=== PATIENT | male | born 1975 | race Caucasian/White ===

== ENCOUNTER → 2024-06-18 | Outpatient (CLI) | payer OTHER, BC ==
--- NOTE | 2024-06-18 15:45 | XR ---
EXAMINATION TYPE: XR hand complete RT DATE OF EXAM: 06/18/2024 3:33 PM INDICATION: Patient age:Male; 49 years old; Reason for study: [id number] HAND INJURY WITH LAC; [facility]. pain COMPARISON: None TECHNIQUE: Frontal, lateral and oblique views of the right hand were obtained. FINDINGS: Normal alignment of the visualized joints. No acute osseous pathology is identified. Scle rotic benign bone identified within the fourth digit proximal phalanx distally. No evidence of soft t issue swelling. No radiopaque foreign body. IMPRESSION: No acute osseous pathology. [facility], , 06/18/2024 3:43 PM
== END | disposition home or self-care (01) ==
LOC: RADXRYALE 15:17
PROVIDERS: ATTEND Physician Assistant Medical
DX: S61.210A Laceration without foreign body of right index finger without damage to nail, initial encounter (principal); S61.011A Laceration without foreign body of right thumb without damage to nail, initial encounter; X58.XXXA Exposure to other specified factors, initial encounter

== ENCOUNTER 2024-08-04 10:22 | Emergency (ER) | payer BC, OTHER ==
[2024-08-04 10:31] VITALS: TEMP 98.1
--- NOTE | 2024-08-04 11:25 | ED ---
General Adult HPI - General Chief complaint: Abdominal Pain Stated complaint: ABD Pain Time Seen by Provider: 08/04/24 10:32 Source: patient, RN notes reviewed Mode of arrival: ambulatory Limitations: no limitations - History of Present Illness Initial comments: 49-year-old male presents to the emergency department for evaluation of right lower quadrant abdominal pain. Patient states that this started at 3 AM. He states that it comes in waves. When the pain comes on he notes that it is sharp pain lasting 15 to 30 seconds. This is happening multiple times an hour. He denies any fever, chills. Denies nausea, vomiting. Denies dysuria, hematuria. Denies any changes in his bowel movements. He has not had anything to eat today. He has been tolerating water. Denies any prior abdominal surgeries - Related Data Allergies Allergy/AdvReac Type Severity Reaction Status Date / Time No Known Allergies Allergy Verified 08/04/24 10:31 Review of Systems ROS Statement: Those systems with pertinent positive or pertinent negative responses have been documented in the HPI. ROS Other: All systems not noted in ROS Statement are negative. Past Medical History Past Medical History: GERD/Reflux, Hypertension History of Any Multi-Drug Resistant Organisms: None Reported Additional Past Surgical History / Comment(s): hand Smoking Status: Current every day smoker Past Alcohol Use History: Occasional Past Drug Use History: None Reported General Exam Limitations: no limitations General appearance: alert, in no apparent distress Head exam: Present: atraumatic, normocephalic, normal inspection Eye exam: Present: normal appearance, PERRL, EOMI. Absent: scleral icterus, conjunctival injection, periorbital swelling ENT exam: Present: normal exam, mucous membranes moist Neck exam: Present: normal inspection. Absent: tenderness, meningismus, lymphadenopathy Respiratory exam: Present: normal lung sounds bilaterally. Absent: respiratory distress, wheezes, rales, rhonchi, stridor Cardiovascular Exam: Present: regular rate, normal rhythm, normal heart sounds. Absent: systolic murmur, diastolic murmur, rubs, gallop, clicks GI/Abdominal exam: Present: soft, tenderness, normal bowel sounds. Absent: distended, guarding, rebound, rigid Extremities exam: Present: normal inspection, full ROM, normal capillary refill. Absent: tenderness, pedal edema, joint swelling, calf tenderness Back exam: Present: normal inspection Neurological exam: Present: alert, oriented X3 Psychiatric exam: Present: normal affect, normal mood Skin exam: Present: warm, dry, intact, normal color. Absent: rash Course Vital Signs 08/04/24 08/04/24 08/04/24 10:28 14:40 15:58 Temperature 98.1 F Pulse Rate 90 68 78 Respiratory 17 18 18 Rate Blood Pressure 203/132 193/118 189/110 O2 Sat by Pulse 96 98 98 Oximetry Medical Decision Making - Medical Decision Making Was pt. sent in by a medical professional or institution (, PA, BALANCE SCREWHEAD POLISHER, urgent care, hospital, or correction...) When possible be specific @ -No Did you speak to anyone other than the patient for history (EMS, parent, family, police, friend...)? What history was obtained from this source @ -No Did you review nursing and triage notes (agree or disagree)? Why? @ -I reviewed and agree with nursing and triage notes Were old charts reviewed (outside hosp., previous admission, EMS record, old EKG, old radiological studies, urgent care reports/EKG's, correction records)? Report findings @ -No old charts were reviewed Differential Diagnosis (chest pain, altered mental status, abdominal pain women, abdominal pain men, vaginal bleeding, weakness, fever, dyspnea, syncope, headache, dizziness, GI bleed, back pain, seizure, CVA, palpatations, mental health, musculoskeletal)? @ -Differential Abdominal Pain Men: Appendicitis, cholecystitis, diverticulosis, ischemic bowel, pancreatitis, hepatitis, UTI, gastroenteritis, AAA, incarcerated hernia, bowel obstruction, constipation, inflammatory bowel, hepatitis, peptic ulcer disease, splenic infarction, perforated viscus, testicular torsion, this is not meant to be an all-inclusive list EKG interpreted by me (3pts min.). @ -None X-rays interpreted by me (1pt min.). @ -None done CT interpreted by me (1pt min.). @ -CT abdomen pelvis revealsNo significant abnormality, no acute intra- abdominal process U/S interpreted by me (1pt. min.). @ -None done What testing was considered but not performed or refused? (CT, X-rays, U/S, labs)? Why? @ -None What meds were considered but not given or refused? Why? @ -None Did you discuss the management of the patient with other professionals (professionals i.e. , PA, BALANCE SCREWHEAD POLISHER, lab, RT, psych nurse, older adult social work specialist, patient care representative, teacher, aerospace engineer officer armament, case management coordinator)? Give summary @ -No Was smoking cessation discussed for >3mins.? @ -No Was critical care preformed (if so, how long)? @ -No Were there social determinants of health that impacted care today? How? (Homelessness, low income, unemployed, alcoholism, drug addiction, transportation, low edu. Level, literacy, decrease access to med. care, correction, rehab)? @ -No Was there de-escalation of care discussed even if they declined (Discuss DNR or withdrawal of care, Hospice)? DNR status @ -No What co-morbidities impacted this encounter? (DM, HTN, Smoking, COPD, CAD, Cancer, CVA, ARF, Chemo, Hep., AIDS, mental health diagnosis, sleep apnea, morbid obesity)? @ -None Was patient admitted / discharged? Hospital course, mention meds given and route , prescriptions, significant lab abnormalities, going to OR and other pertinent info. @ -Patient left AGAINST MEDICAL ADVICE.Patient presented the emergency department for right lower quadrant abdominal pain. Laboratory studies obtained revealing no significant leukocytosis, hemoglobin 16.9; CMP reveals mild elevation in the AST and ALT. UA shows no evidence of infectious process, neg ative for blood. CT of the abdomen pelvis shows no evidence of acute intra- abdominal process. Patient found to be hypertensive in the emergency department. He was administered a dose of clonidine in the emergency department. He refused to allow me to recheck his blood pressure. He left AGAINST MEDICAL ADVICE. Undiagnosed new problem with uncertain prognosis? @ -No Drug Therapy requiring intensive monitoring for toxicity (Heparin, Nitro, Insulin, Cardizem)? @ -No Were any procedures done? @ -No Diagnosis/symptom? @ -Abdominal pain Acute, or Chronic, or Acute on Chronic? @ -Acute Uncomplicated (without systemic symptoms) or Complicated (systemic symptoms)? @ -Uncomplicated Side effects of treatment? @ -No Exacerbation, Progression, or Severe Exacerbation? @ -No Poses a threat to life or bodily function? How? (Chest pain, [place], DE, pneumonia, PE, COPD, DKA, ARF, appy, cholecystitis, CVA, Diverticulitis, Homicidal, Suicidal, threat to staff... and all critical care pts) @ -No - Lab Data Result diagrams: 08/04/24 11:29 08/04/24 11:29 Lab Results 08/04/24 08/04/24 08/04/24 Range/Units 11:29 11:29 11:29 WBC 8.45 (4.50-10.00) 10*3/uL RBC 5.36 (4.40-5.60) 10*6/uL Hgb 16.9 (13.0-17.0) g/dL Hct 48.1 (39.6-50.0) % MCV 89.7 (80.0-97.0) fL MCH 31.5 (27.0-32.0) pg MCHC 35.1 (32.0-37.0) g/dL Plt Count 233 (140-440) 10*3/uL MPV 9.6 (9.5-12.2) fL Immature Gran % (Auto) 0.4 % Neutrophils % 63.5 % Lymphocytes % 24.9 % Monocytes % 7.6 % Eosinophils % 3.0 % Basophils % 0.6 % Immature Gran # 0.03 (0.00-0.04) 10*3/uL Neutrophils # 5.38 (1.80-7.70) 10*3/uL Lymphocytes # 2.10 (0.90-5.00) 10*3/uL Monocytes # 0.64 (0.20-1.00) 10*3/uL Eosinophils # 0.25 (0.04-0.35) 10*3/uL Basophils # 0.05 (0.00-0.10) 10*3/uL Sodium 136 L (137-145) mmol/L Potassium 4.6 (3.5-5.1) mmol/L Chloride 105 (98-107) mmol/L Carbon Dioxide 21 L (22-30) mmol/L Anion Gap 10 mmol/L BUN 9 (9-20) mg/dL Creatinine 0.90 (0.66-1.25) mg/dL Est GFR (CKD-EPI)AfAm >90 (>60 ml/min/1.73 sqM) Est GFR (CKD-EPI)NonAf >90 (>60 ml/min/1.73 sqM) Glucose 99 (74-99) mg/dL Plasma Lactic Acid Jared (0.7-2.0) mmol/L Calcium 9.3 (8.4-10.2) mg/dL Total Bilirubin 0.7 (0.2-1.3) mg/dL AST 65 H (17-59) U/L ALT 105 H (4-49) U/L Alkaline Phosphatase 124 (38-126) U/L Total Protein 7.6 (6.3-8.2) g/dL Albumin 4.4 (3.5-5.0) g/dL Amylase 41 (30-110) U/L Lipase 55 (23-300) U/L Urine Color Light Yellow Urine Appearance Clear (Clear) Urine pH 7.0 (5.0-8.0) Ur Specific [place] 1.015 (1.001-1.035) Urine Protein Negative (Negative) Urine Glucose (UA) Negative (Negative) Urine Ketones Negative (Negative) Urine Blood Negative (Negative) Urine Nitrite Negative (Negative) Urine Bilirubin Negative (Negative) Urine Urobilinogen <2.0 (<2.0) mg/dL Ur Leukocyte Esterase Negative (Negative) 08/04/24 Range/Units 11:29 WBC (4.50-10.00) 10*3/uL RBC (4.40-5.60) 10*6/uL Hgb (13.0-17.0) g/dL Hct (39.6-50.0) % MCV (80.0-97.0) fL MCH (27.0-32.0) pg MCHC (32.0-37.0) g/dL Plt Count (140-440) 10*3/uL MPV (9.5-12.2) fL Immature Gran % (Auto) % Neutrophils % % Lymphocytes % % Monocytes % % Eosinophils % % Basophils % % Immature Gran # (0.00-0.04) 10*3/uL Neutrophils # (1.80-7.70) 10*3/uL Lymphocytes # (0.90-5.00) 10*3/uL Monocytes # (0.20-1.00) 10*3/uL Eosinophils # (0.04-0.35) 10*3/uL Basophils # (0.00-0.10) 10*3/uL Sodium (137-145) mmol/L Potassium (3.5-5.1) mmol/L Chloride (98-107) mmol/L Carbon Dioxide (22-30) mmol/L Anion Gap mmol/L BUN (9-20) mg/dL Creatinine (0.66-1.25) mg/dL Est GFR (CKD-EPI)AfAm (>60 ml/min/1.73 sqM) Est GFR (CKD-EPI)NonAf (>60 ml/min/1.73 sqM) Glucose (74-99) mg/dL Plasma Lactic Acid Jared 1.7 (0.7-2.0) mmol/L Calcium (8.4-10.2) mg/dL Total Bilirubin (0.2-1.3) mg/dL AST (17-59) U/L ALT (4-49) U/L Alkaline Phosphatase (38-126) U/L Total Protein (6.3-8.2) g/dL Albumin (3.5-5.0) g/dL Amylase (30-110) U/L Lipase (23-300) U/L Urine Color Urine Appearance (Clear) Urine pH (5.0-8.0) Ur Specific [place] (1.001-1.035) Urine Protein (Negative) Urine Glucose (UA) (Negative) Urine Ketones (Negative) Urine Blood (Negative) Urine Nitrite (Negative) Urine Bilirubin (Negative) Urine Urobilinogen (<2.0) mg/dL Ur Leukocyte Esterase (Negative) Disposition Clinical Impression: Abdominal pain Disposition: LEFT AGAINST MEDICAL ADVICE Condition: Stable Instructions (If sedation given, give patient instructions): Abdominal Pain (ED) Additional Instructions: Please follow-up with your doctor. Please take your blood pressure medication as prescribed. Return to the emergency department for new or worsening symptoms Is patient prescribed a controlled substance at d/c from ED?: No Referrals: Marisa Choe MD [Primary Care Provider] - 1-2 days
[2024-08-04] MEDS: LACTATED RINGERS 1,000 ML IV ONE (11:33)
[2024-08-04 11:42] LABS: Basophils # (A) 0.05 10*3/uL (0.00-0.10); Basophils % (A) 0.6 %; Eosinophils # (A) 0.25 10*3/uL (0.04-0.35); HCT 48.1 % (39.6-50.0); HGB 16.9 g/dL (13.0-17.0); Lymphocytes % (A) 24.9 %; MCH 31.5 pg (27.0-32.0); MCHC 35.1 g/dL (32.0-37.0); MCV 89.7 fL (80.0-97.0); Mean Platelet Volume 9.6 fL (9.5-12.2); Monocytes # (A) 0.64 10*3/uL (0.20-1.00); Monocytes % (A) 7.6 %; Neutrophils # (A) 5.38 10*3/uL (1.80-7.70); Neutrophils % (A) 63.5 %; Platelet Count 233 10*3/uL (140-440); RBC 5.36 10*6/uL (4.40-5.60); RDW 13.1 % (11.5-14.5); WBC 8.45 10*3/uL (4.50-10.00)
--- NOTE | 2024-08-04 11:54 | CT ---
EXAMINATION TYPE: CT abdomen pelvis w con DATE OF EXAM: 08/04/2024 COMPARISON: None CLINICAL INDICATION: Male, 49 years old with history of RLQ abdominal pain; PHH, RLQ PAIN TECHNIQUE: Performed without Oral Contrast and with IV Contrast, patient injected with 100 mL of Isovue 300. CT DLP: 1322.[address] CTDI: mGy Automated exposure control for dose reduction was used. FINDINGS: The lung bases are clear. The gallbladder is normal without distention, wall thickening, pericholecystic fluid or gallstones. T here is no biliary ductal dilatation. There is no focal mass or organomegaly involving the liver, pancreas, spleen or adrenal glands. There is no solid renal mass or hydronephrosis and there is homogeneous contrast enhancement of the r enal parenchyma. The caliber the abdominal aorta is normal is no retroperitoneal adenopathy or hemorr kizzy. The bowel loops are normal in caliber and there is no evidence of dilatation or obstruction. No infla mmatory changes are identified in the bowel wall or mesentery.The appendix is visualized and is love l. There is no free intraperitoneal air or fluid. No pelvic mass, free fluid, abscess or adenopathy. The osseous structures and soft tissues are intact. IMPRESSION: No significant abnormality seen. No acute changes within the abdomen or pelvis. [facility], Workstation: [id number] 08/04/2024 11:52 AM
[2024-08-04 11:57] LABS: ALT 105 U/L (4-49); AST 65 U/L (17-59); African American GFR (CKD) >90 (>60 ml/min/1.73 sqM); Albumin 4.4 g/dL (3.5-5.0); Alkaline Phosphatase 124 U/L (38-126); Amylase 41 U/L (30-110); Anion Gap 10 mmol/L; Blood Urea Nitrogen 9 mg/dL (9-20); Calcium 9.3 mg/dL (8.4-10.2); Carbon Dioxide 21 mmol/L (22-30); Chloride 105 mmol/L (98-107); Glucose 99 mg/dL (74-99); Lipase 55 U/L (23-300); Non-African American GFR(CKD) >90 (>60 ml/min/1.73 sqM); Potassium 4.6 mmol/L (3.5-5.1); Sodium 136 mmol/L (137-145); Total Bilirubin 0.7 mg/dL (0.2-1.3); Total Protein 7.6 g/dL (6.3-8.2)
[2024-08-04 12:14] LABS: Appearance,Urine Clear (Clear); Bilirubin,Urine Negative (Negative); Blood,Urine Negative (Negative); Color,Urine Light Yellow; Glucose,Urine (UA) Negative (Negative); Ketones,Urine Negative (Negative); Leukocyte Esterase,Urine Negative (Negative); Nitrite,Urine Negative (Negative); Protein,Urine Negative (Negative); Specific Gravity,Urine 1.015 (1.001-1.035); Urobilinogen,Urine <2.0 mg/dL (<2.0)
[2024-08-04 14:41] VITALS: RESP 18
[2024-08-04] MEDS: cloNIDine HCL 0.2 MG TAB PO STA (14:57)
[2024-08-04] MEDS: ACETAMINOPHEN TAB 500 MG TAB PO STA (14:57)
[2024-08-04 15:59] VITALS: BP 189/110; PULSE 78
== END 2024-08-04 16:04 | disposition left against medical advice (07) ==
LOC: EC 10:22
DX: R10.31 Right lower quadrant pain (principal); I10 Essential (primary) hypertension; F17.200 Nicotine dependence, unspecified, uncomplicated; Z53.29 Procedure and treatment not carried out because of patient's decision for other reasons
CPT/HCPCS: 36415; 80053; 82150; 83605; 83690; 85025; 81003; 74177; 99284; 96360; Q9967